=== PATIENT | female | born 1995 | race Caucasian/White ===

== ENCOUNTER 2021-11-23 10:37 | Emergency (ER) | payer OTHER ==
[~2021-11-23] VITALS: Ht 162.6 cm; Wt 65.8 kg
[2021-11-23] MEDS ORDERED: MELOXICAM7.5 MG PO (12:10)
== END 2021-11-23 15:23 | disposition home or self-care (01) ==
LOC: ER 11:03
DX: S40.012A Contusion of left shoulder, initial encounter (principal); M25.522 Pain in left elbow; V49.40XA Driver injured in collision with unspecified motor vehicles in traffic accident, initial encounter
CPT/HCPCS: 99283